=== PATIENT | male | born 1940 | race Caucasian/White ===

== ENCOUNTER 2021-02-12 10:58 | Outpatient (CLI) | payer MEDICARE, SELFPAY ==
--- NOTE | ~2021-02-12 | XR_ITS ---
EXAMINATION: XR abdomen/kub 1V INDICATION: Right ureteral stone TECHNIQUE: Supine views of the abdomen were obtained on 2 radiographs. COMPARISON: None FINDINGS: No definite urolithiasis is identified. The bowel gas pattern is normal. Surgical clips in the right upper quadrant are likely from prior cholecystectomy. The visualized lung bases are clear. There is mild osteoarthritis of the hips. IMPRESSION: 1. No definite urolithiasis identified. Reviewed, dictated and finalized at location A.
== END 2021-02-12 10:59 | disposition home or self-care (01) ==
LOC: ANHIMG 11:06
PROVIDERS: PCP Family Medicine; Visit Provider Nurse Practitioner Adult Health
DX: N20.1 Calculus of ureter (principal)
CPT/HCPCS: 74018